=== PATIENT | male | born 1950 | race Caucasian/White ===

== ENCOUNTER 2022-04-06 11:49 | Emergency (ER) | payer MEDICARE, OTHER ==
[~2022-04-06] VITALS: Ht 190 cm; Wt 110.0 kg
--- NOTE | 2022-04-06 11:57 | ED Lower Extremity ---
General Chief Complaint: Lower Extremity Stated Complaint: LT FOOT SWELLING History of Present Illness Date Seen by Provider: Apr 06, 2022 Time Seen by Provider: 11:55 Initial Comments 72-year-old male presents with left foot pain and swelling. Patient reports that 2 days ago he took a fall in his kitchen. That he hurt his left foot when he fell. He is complaining of some swelling and tenderness. Reports that his continue to have difficulty bearing weight with swelling. He reports he has had elevated and iced but has not gone down. The pains mainly on the lateral distal aspect. He reports no other injuries from the fall Allergies and Home Medications Patient Home Medication List Home Medication List Reviewed: Yes Review of Systems Constitutional: no symptoms reported EENTM: no symptoms reported Respiratory: no symptoms reported Cardiovascular: no symptoms reported Gastrointestinal: no symptoms reported Genitourinary: no symptoms reported Musculoskeletal: see HPI Skin: see HPI Physical Exam Vital Signs Vital Signs - First Documented 04/06/22 12:07 Pulse 68 Resp 18 B/P (MAP) 165/76 (105) Pulse Ox 100 O2 Delivery Room Air Capillary Refill : Height, Weight, BMI Height: '" Weight: lbs. oz. kg; BMI Method: General Appearance: WD/WN, no apparent distress HEENT: PERRL/EOMI Neck: full range of motion, supple Cardiovascular: normal peripheral pulses, regular rate, rhythm Respiratory: lungs clear, normal breath sounds Gastrointestinal: non tender, soft Hips: bilateral hip non-tender Legs: bilateral leg non-tender Knees: bilateral knee non-tender Ankles: bilateral ankle non-tender Feet: left foot ecchymosis, left foot limited range of motion, left foot soft tissue tenderness, left foot swelling Neurologic/Tendon: normal sensation Neurologic/Psychiatric: alert, normal mood/affect, oriented x 3 Skin: ecchymosis (Distal left foot) Progress/Results/Core Measures Results/Orders My Orders Orders - RUIZ RAMIREZ DO Foot 3 View Left (04/06/22 11:57) Vital Signs/I&O 04/06/22 12:07 Pulse 68 Resp 18 B/P (MAP) 165/76 (105) Pulse Ox 100 O2 Delivery Room Air Progress Progress Note : Progress Note Patient with a partial dislocation of the second toe on x-ray but patient did not want any treatment. Patient's great toe has some chronic changes. He reports that he has had previous surgery on it and had the toes shortened. That there is no increased changes at this time to it. Patient likely with just a contusion. The swelling did go down significantly with just elevation here in the ER. Discussed with patient and family the need Hong wrap to keep the foot elevated. Patient stable and discharged home Diagnostic Imaging Diagonstic Imaging: Xray Plain Films/CT/US/NM/MRI: other Comments Date of Exam:04/06/22 FOOT 3 VIEW LEFT INDICATION: Pain and swelling post fall. TECHNIQUE: 3 views of the left foot CORRELATION STUDY: None FINDINGS: No acute fracture. There is medial and dorsal subluxation at the 2nd MTP joint. Indeterminate at this acute or chronic. There is abnormal appearance about the 1st MTP joint with somewhat eroded appearance and absence of normal smooth cortical margin of the 1st metatarsal head as well as at the base of the 1st proximal phalanx. There is also abnormal hypertrophic change about the underlying sesamoid bones. Degenerative changes through the tarsal and tarsometatarsal articulations includes mild joint space narrowing osteophyte formation. Prominent soft tissue edema along the dorsal aspect of the foot. IMPRESSION: 1. Negative for acute fracture left foot. 2. There is a partial dislocation at the 2nd MTP joint. Age of this indeterminate. Correlation symptoms sided pain. 3. Abnormal appearance about the 1st MTP joint. There is a significant erosion at the metatarsal head and base of the 1st proximal phalanx. This could be owing to a perhaps chronic inflammatory arthritides. Infectious etiology including osteomyelitis also consideration. Clinical correlation recommended. Departure Impression Primary Impression: Sprain or strain of foot Additional Impression: Dislocated toe Qualified Codes: S93.105A - Unspecified dislocation of left toe(s), initial encounter Disposition: 01 HOME, SELF-CARE Condition: Stable Departure-Patient Inst. Referrals: SELF,CHELSEA SCHMIDT (PCP) Primary Care Physician Patient Instructions: Foot Sprain (DC), Toe Injury Add. Discharge Instructions: Keep left leg elevated when not ambulating, ice to affected foot for 10 minutes at a time 3-4 times daily, Hong wrap. Follow-up with your primary care provider as needed. All discharge instructions reviewed with patient and/or family. Voiced understanding. RUIZ RAMIREZ DO Apr 06, 2022 11:57
[2022-04-06 12:07] VITALS: BP 165/76
--- NOTE | 2022-04-06 12:36 | Diagnostic Imaging Report ---
INDICATION: Pain and swelling post fall. TECHNIQUE: 3 views of the left foot CORRELATION STUDY: None FINDINGS: No acute fracture. There is medial and dorsal subluxation at the 2nd MTP joint. Indeterminate at this acute or chronic. There is abnormal appearance about the 1st MTP joint with somewhat eroded appearance and absence of normal smooth cortical margin of the 1st metatarsal head as well as at the base of the 1st proximal phalanx. There is also abnormal hypertrophic change about the underlying sesamoid bones. Degenerative changes through the tarsal and tarsometatarsal articulations includes mild joint space narrowing osteophyte formation. Prominent soft tissue edema along the dorsal aspect of the foot. IMPRESSION: 1. Negative for acute fracture left foot. 2. There is a partial dislocation at the 2nd MTP joint. Age of this indeterminate. Correlation symptoms sided pain. 3. Abnormal appearance about the 1st MTP joint. There is a significant erosion at the metatarsal head and base of the 1st proximal phalanx. This could be owing to a perhaps chronic inflammatory arthritides. Infectious etiology including osteomyelitis also consideration. Clinical correlation recommended. Dictated by: Dictated on workstation # [id number]
== END 2022-04-06 12:55 | disposition home or self-care (01) ==
LOC: ER FS 11:51
DX: S93.125A Dislocation of metatarsophalangeal joint of left lesser toe(s), initial encounter (principal); S96.912A Strain of unspecified muscle and tendon at ankle and foot level, left foot, initial encounter; W18.30XA Fall on same level, unspecified, initial encounter; Y92.000 Kitchen of unspecified non-institutional (private) residence as the place of occurrence of the external cause
CPT/HCPCS: 73630; 99283